=== PATIENT | female | born 1960 | race Caucasian/White ===

== ENCOUNTER 2016-10-28 12:41 | Emergency (ER) | payer MEDICAID ==
[2016-10-28 12:52] VITALS: BP 147/86
[2016-10-28] MEDS ORDERED: HYDROmorphone 1 MG/ML Syringe IVPUSH ONE (13:15)
[2016-10-28] MEDS ORDERED: Sodium Chloride 0.9% 10 ML Syringe FLUSH PRN (13:15)
--- NOTE | 2016-10-28 13:19 | EDM.PDOC ---
ED HPI GENERAL MEDICAL PROBLEM - General Chief Complaint: General Stated Complaint: POST SURGICAL ISSUES Time Seen by Provider: 10/28/16 13:16 Source of Information: Reports: Patient History Limitations: Reports: No Limitations - History of Present Illness INITIAL COMMENTS - FREE TEXT/NARRATIVE: 55 year old female presents for evaluation and treatment of a prolapsed rectum. Patient reports she had a colonscopy done on in [place] with Dr. Camacho. States she came home Saturday. Saturday she felt uncomfortable and sore. Reports Saturday she experienced significant pain. Her evaluated her and found a rectal mass. After researching the mass they determined she had a prolapsed rectum. She states her pushed the mass in. They contacted the on-call in [place] who instructed them to push it back in and they are unable to get it come to the ER. Patient reports this morning she awoke and noticed the rectum to be out again. She reports it is painful to sit and walk. Last BM was Saturday, she had a loose stool. No blood in her stool or rectal bleeding. She has never had anything like this before. She reports she colonscopy was preformed for rectal bleeding. Polyps were removed but she otherwise had no complications. Rectal Pain Score (Numeric/FACES): 9 - Related Data Allergies Allergy/AdvReac Type Severity Reaction Status Date / Time lisinopril Allergy Cough Verified 06/13/15 23:34 methadone Allergy Vomiting Verified 06/13/15 23:34 Home Meds: Home Meds Diazepam [Valium] 5 mg PO Q4H PRN 06/13/15 [History] oxyCODONE HCl/Acetaminophen [Percocet 5-325 mg Tablet] 1 tab PO Q4H PRN [History] Benzocaine [Americaine] 28 gm TP ASDIRECTED #1 tube 10/28/16 [Rx] Past Medical History Cardiovascular History: Reports: High Cholesterol, Hypertension Gastrointestinal History: Reports: Colon Polyp Other Gastrointestinal History: polyps removed x 5 Genitourinary History: Reports: Renal Calculus Musculoskeletal History: Reports: Back Pain, Chronic, Other (See Below) Other Musculoskeletal History: cervical disc removed 4-7. now with plates and screws Neurological History: Reports: TIA Endocrine/Metabolic History: Reports: Diabetes, Type II Oncologic (Cancer) History: Reports: Cervix - Past Surgical History GI Surgical History: Reports: Colonoscopy Female Surgical History: Reports: Hysterectomy, Other (See Below) Other Female Surgeries/Procedures: cervical cancer Social & Family History - Tobacco Use Smoking Status *Q: Never Smoker Years of Tobacco use: 40 Packs/Tins Daily: 0.5 - Caffeine Use Caffeine Use: Reports: Soda - Recreational Drug Use Recreational Drug Use: No ED ROS GENERAL - Review of Systems Review Of Systems: See Below GI/Abdominal: Reports: Other (rectal mass and rectal pain). Denies: Constipation, Diarrhea, Hematochezia, Melena ED EXAM, GENERAL - Physical Exam Exam: See Below Exam Limited By: No Limitations General Appearance: Alert, WD/WN, Mild Distress, Obese Respiratory/Chest: No Respiratory Distress, Lungs Clear, Normal Breath Sounds Cardiovascular: Normal Peripheral Pulses, Regular Rate, Rhythm, No Murmur Rectal (Female) Exam: Mass (linear appearing blue/purple mass suspicious for a prolapsed internal hemorrhoid), Tenderness Neurological: Alert, Oriented, Normal Cognition Psychiatric: Normal Affect, Normal Mood Skin Exam: Warm, Dry, Normal Color Course - Vital Signs Last Recorded V/S: Last Vital Signs Temp 36.4 C 10/28/16 12:51 Pulse 117 H 10/28/16 12:51 Resp 20 10/28/16 12:51 BP 147/86 H 10/28/16 12:51 Pulse Ox 92 L 10/28/16 12:51 - Orders/Labs/Meds Meds: Medications Discontinued Medications Generic Name Dose Route Start Last Admin Trade Name Freq PRN Reason Stop Dose Admin Hydromorphone HCl 1 mg 10/28/16 13:15 10/28/16 13:32 Dilaudid IVPUSH 10/28/16 13:16 1 mg ONETIME ONE Administration Sodium Chloride 10 ml 10/28/16 13:15 10/28/16 13:33 Saline Flush FLUSH 10 ml ASDIRECTED PRN Administration Keep Vein Open - Re-Assessments/Exams Free Text/Narrative Re-Assessment/Exam: 10/28/16 15:15 I initially gave the patient dilaudid for pain. Discussed the case with Dr. Fregoso who recommend applying sugar to the area to help with swelling and allow for better reduction. Mass was successfully reduced with pressure. The patient had discomfort with the procedure. I then had her get up walk around and sit. Upon re examining the area the mass had prolapsed again. On PE this is suspicious for a prolapsed internal hemorrhoid vs. prolapsed rectum. I reviewed the patient's records she has brought in from her recent colonscopy. Polyps removed. No mention of internal hemorrhoids. I contacted our surgeon veterans rehabilitation counselor, Dr. Jordy Izquierdo, recommend sit baths, staying off her feet, pain meds and bupivacaine topical for relief. Recommend she follow -up with Dr. Camacho as soon as she is able to. Patient has pain medication at home. She has not taken any for this problem as of yet. I will prescribe bupivacaine topical and discharge her home. Discharge instructions as documented. Departure - Departure Time of Disposition: 15:18 Disposition: Home, Self-Care 01 Condition: Good Clinical Impression: Prolapsed internal hemorrhoids - Discharge Information Prescriptions: Benzocaine [Americaine] 28 gm TP ASDIRECTED #1 tube Instructions: Hemorrhoids, [id number] Referrals: Kiya Chapman NP [Primary Care Provider] - Ozzy Camacho MD [Ordering Only Provider] - Forms: ED Department Discharge Additional Instructions: Take the medication you have at home for pain as needed. Apply the benzocaine up to 6 times a day to the area. Apply sparingly. Sitz bath. Recommend staying off your feet and resting. Call your surgeon's office first thing in the morning and let them know of your postsurgical complications. Please return to ER if your symptoms change or worsen.
== END 2016-10-28 15:30 | disposition home or self-care (01) ==
LOC: JD.ED 12:41
DX: K64.8 Other hemorrhoids (principal); I10 Essential (primary) hypertension; E78.00 Pure hypercholesterolemia, unspecified; E11.9 Type 2 diabetes mellitus without complications; Z86.73 Personal history of transient ischemic attack (TIA), and cerebral infarction without residual deficits; Z90.710 Acquired absence of both cervix and uterus; Z87.442 Personal history of urinary calculi; Z85.41 Personal history of malignant neoplasm of cervix uteri; Z98.890 Other specified postprocedural states; Z88.8 Allergy status to other drugs, medicaments and biological substances
CPT/HCPCS: 96374; 99283; J1170; J7050

== ENCOUNTER 2020-07-04 07:40 | Day surgery (SDC) | payer MEDICARE, BC ==
[~2020-07-04 07:40] MED LIST: Lactated Ringers 1,000 ML IV SCH; Lidocaine 1%/Sod Bicarbonate in NS 8.4% 1 ML Syringe IDERM PRN; Sodium Chloride 0.9% 10 ML Syringe FLUSH PRN
--- NOTE | 2020-07-04 07:57 | PCM.PREANE ---
Preanesthetic Assessment - Procedure Proposed Procedure: Surveillance Colonoscopy - Anesthesia/Transfusion/Family Hx Anesthesia History: Prior Anesthesia Without Reaction Family History of Anesthesia Reaction: No Transfusion History: No Prior Transfusion(s) Intubation History: Unknown - Review of Systems General: No Symptoms Pulmonary: No Symptoms (JACK-CPAP, Former smoker: qUIT 2015) Cardiovascular: No Symptoms (HTN, elevated cholesterol), Dyspnea on Exertion (going up steps) Gastrointestinal: No Symptoms (History of malignant neoplastic disease- cervix(hysterectomy)), Diarrhea Neurological: No Symptoms (History of CVA: 2003 chronic lower back pain), Headache (history of migraines) Other: Reports: Easy Bruising, Diabetes (Am GV=908 @ 0755), Thyroid Problems (History of hyper/hypo and Andrey's throiditis), Neck Pain (Cervical nerve root disorder, cervical spinie stenosis/HISTORY OF NECK SURGERY:06/15) - Physical Assessment NPO Status Date: 07/03/20 NPO Status Time: 20:30 Vital Signs: HR:94 Sat:92% Temp:96.7 B/P: 118/67 Resp:20 Height: 1.68 m Weight: 122 kg ASA Class: 3 Mental Status: Alert & Oriented x3 Airway Class: Mallampati = 2 Dentition: Reports: Normal Dentition, Missing Tooth/Teeth, Caries Thyro-Mental Finger Breadths: 3 Mouth Opening Finger Breadths: 3 ROM/Head Extension: Full Lungs: Clear to Auscultation, Normal Respiratory Effort Cardiovascular: Regular Rate, Regular Rhythm, No Murmurs - Lab Values: All labs reviewed and noted and within acceptable ranges to proceed with scheduled procedure. - Imaging/EKG Impressions: EKG: SR Rate=82 - Allergies Allergies/Adverse Reactions: Allergies Allergy/AdvReac Type Severity Reaction Status Date / Time lisinopril Allergy Cough Verified 07/01/20 10:18 methadone Allergy Vomiting Verified 07/01/20 10:18 - Anesthesia Plan Pre-Op Medication Ordered: Beta Loraine Beta Loraine: Metoprolol Med Last Dose Date: 07/04/20 Med Last Dose Time: 07:00 - Acknowledgements Anesthesia Type Planned: MAC Pt an Appropriate Candidate for the Planned Anesthesia: Yes Alternatives and Risks of Anesthesia Discussed w Pt/Guardian: Yes Pt/Guardian Understands and Agrees with Anesthesia Plan: Yes PreAnesthesia Questionnaire HEENT History: Reports: None Cardiovascular History: Reports: High Cholesterol, Hypertension Respiratory History: Reports: Sleep Apnea Gastrointestinal History: Reports: Colon Polyp, Hemorrhoids Other Gastrointestinal History: polyps removed x 5 Genitourinary History: Reports: Renal Calculus 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 now with plates and screws Neurological History: Reports: CVA, TIA, Other (See Below) Other Neuro History: cervical nerve root disorder, cervical spinal stenosis Psychiatric History: Reports: Depression Endocrine/Metabolic History: Reports: Diabetes, Type II, Hyperthyroidism, Hypothyroidism, Other (See Below) Other Endocrine/Metabolic History: hashimotos thyroiditis Hematologic History: Reports: None Immunologic History: Reports: None Oncologic (Cancer) History: Reports: Cervix Dermatologic History: Reports: None - Past Surgical History Head Surgeries/Procedures: Reports: None HEENT Surgical History: Reports: Tonsillectomy Cardiovascular Surgical History: Reports: None Respiratory Surgical History: Reports: None GI Surgical History: Reports: Appendectomy, Colonoscopy Female Surgical History: Reports: Hysterectomy, Other (See Below) Other Female Surgeries/Procedures: cervical cancer Endocrine Surgical History: Reports: None Neurological Surgical History: Reports: C-Spine Musculoskeletal Surgical History: Reports: None Dermatological Surgical History: Reports: None - SUBSTANCE USE Tobacco Use Status *Q: Former Tobacco User Recreational Drug Use History: No - HOME MEDS Home Medications: Home Meds Acetaminophen/oxyCODONE [Percocet 325-5 MG] 1 tab PO QID PRN 07/01/20 [History] Aspirin 81 mg PO DAILY 07/01/20 [History] Cholecalciferol (Vitamin D3) [Vitamin D3] 5,000 unit PO DAILY 07/01/20 [History] Diclofenac Sodium/Misoprostol [Arthrotec 75 mg-200 Mcg Tab] 1 tab PO TID 07/01/20 [History] Glucosamine/Methylsulfonylmeth [MSM-Glucosamine 250-250 MG] 1 cap PO DAILY 07/01/20 [History] Levothyroxine Sodium [Levothyroxine] 150 mcg PO DAILY 07/01/20 [History] Metoprolol Tartrate [Lopressor] 50 mg PO BID 07/01/20 [History] Multivitamin 1 tab PO DAILY 07/01/20 [History] Nortriptyline HCl [Pamelor] 50 mg PO DAILY 07/01/20 [History] Selenium 200 mcg PO DAILY 07/01/20 [History] amLODIPine Besylate [Norvasc] 10 mg PO DAILY 07/01/20 [History] diazePAM [Valium] 5 mg PO Q6H PRN 07/01/20 [History] metFORMIN [Glucophage] 2,000 mg PO DAILY 07/01/20 [History] - CURRENT (IN HOUSE) MEDS Current Meds: Current Medications Lactated Ringer's (Ringers, Lactated) 1,000 mls @ 125 mls/hr IV ASDIRECTED ROSSY Stop: 07/04/20 23:00 Lidocaine/Sodium Bicarbonate (Lidocaine 1%/Sod Bicarbonate In Ns 8.4% 1 Ml Syringe) 0.25 ml IDERM ONETIME PRN PRN Reason: Prior to IV Start Stop: 07/04/20 18:00 Sodium Chloride (Sodium Chloride 0.9% 10 Ml Syringe) 10 ml FLUSH ASDIRECTED PRN PRN Reason: Keep Vein Open Stop: 07/04/20 18:00
[2020-07-04] MEDS ORDERED: Albuterol 0.083% 2.5 MG/3 ML Neb Soln NEB ONE (08:21)
[2020-07-04] MEDS ORDERED: Midazolam 1 MG/ML 2 ML SDV ONE ×2 (08:23→09:30)
[2020-07-04] MEDS ORDERED: Propofol 200 MG/20 ML SDV ONE ×3 (08:23→09:51)
--- NOTE | 2020-07-04 10:12 | PCM48HPAN ---
Post Anesthesia Note - EVALUATION WITHIN 48HRS OF ANESTHETIC Vital Signs in Normal Range: Yes Patient Participated in Evaluation: Yes Respiratory Function Stable: Yes Airway Patent: Yes Cardiovascular Function Stable: Yes Hydration Status Stable: Yes Pain Control Satisfactory: Yes Nausea and Vomiting Control Satisfactory: Yes Mental Status Recovered: Yes Vital Signs: Last Vital Signs Temp 35.9 C L 07/04/20 07:50 Pulse 94 07/04/20 07:50 Resp 20 07/04/20 07:50 BP 118/67 07/04/20 07:50 Pulse Ox 93 L 07/04/20 08:45
--- NOTE | 2020-07-04 11:10 | PROC ---
DATE OF OPERATION: 07/04/2020 SURGEON: Sarah Joaquin MD PREOPERATIVE DIAGNOSES: 1. Hematochezia. 2. Need for surveillance colonoscopy. OPERATION PERFORMED: Colonoscopy with hemorrhoid banding. FINDINGS: 1. Diverticulosis. 2. Grade 3 hemorrhoids. ESTIMATED BLOOD LOSS: Minimal. ANESTHESIA: Monitored anesthesia care. COMPLICATIONS: None. INDICATIONS AND CONSENT: The patient 59-year-old female who presented to the office, has known history of hemorrhoids that have been flaring up frequently. The patient has tried many topical medications, but this continued to be a problem that bothers her. The hemorrhoids are associated with bleeding that is only after bowel movement and on toilet paper. The patient also needs a surveillance colonoscopy. We discussed that it is going to be best to do a colonoscopy and banding at the same time. We discussed risks, benefits, and alternatives and informed consent was obtained. DESCRIPTION OF PROCEDURE: The patient was taken to the procedure room, placed in left lateral decubitus position. Monitored anesthesia care was induced. A time-out was performed, and we began the procedure with perianal exam, which was significant for a small hemorrhoidal tissue at the left lateral position. The perianal exam otherwise was normal. Digital rectal exam was normal. We placed a colonoscope, taking down all the way to the cecum. Cecum was photographed. Ileocecal valve as well as appendiceal orifice were photographed. Then, we began to withdraw the colonoscope taking a good look at the entirety of the colonic mucosa. Prep was very good. There were no polyps that could be found through the entirety of the exam. There were scattered small and medium-sized diverticulosis from the transverse colon all the way to the sigmoid colon, most of them were in the sigmoid colon. Then, in the rectum on retroflexion, there were grade III hemorrhoids that were be visualized. They were not bleeding but were somewhat irritated. Once the exam was concluded, we suctioned out, and we decided to perform hemorrhoid banding due to her long-standing history of hemorrhoid problems. The speculum was placed once again, and the rectal mucosa was normal except for the hemorrhoids. A banding device was used to place 3 bands one at each hemorrhoid complex in the left lateral, right posterior, and right anterior. There was no bleeding after hemorrhoid banding. Once this was done, the procedure was concluded. The patient was awoken and taken to the PACU for recovery. The patient will need another screening colonoscopy in 5 years. Otherwise, instructions were given about the care post hemorrhoid banding, and the patient will follow up with primary care as regularly scheduled and follow up with me as needed. [id number] /[id number] MTDD
[2020-07-04 11:11] VITALS: BP 122/65; PULSE 72
== END 2020-07-04 10:55 | disposition home or self-care (01) ==
LOC: JD.SDS 07:40
PROVIDERS: ATTEND Surgery
DX: K57.30 Diverticulosis of large intestine without perforation or abscess without bleeding (principal); K64.2 Third degree hemorrhoids; G89.29 Other chronic pain; E11.9 Type 2 diabetes mellitus without complications; I10 Essential (primary) hypertension; E78.00 Pure hypercholesterolemia, unspecified; E66.9 Obesity, unspecified; Z98.890 Other specified postprocedural states; Z86.010 Personal history of colon polyps; Z79.899 Other long term (current) drug therapy; Z79.82 Long term (current) use of aspirin; Z79.84 Long term (current) use of oral hypoglycemic drugs; Z88.8 Allergy status to other drugs, medicaments and biological substances; Z87.891 Personal history of nicotine dependence; Z80.0 Family history of malignant neoplasm of digestive organs; Z68.41 Body mass index [BMI] 40.0-44.9, adult
CPT/HCPCS: 45378; 46221; 82962; 94640; J2250; J2704; J7120; 00902

== ENCOUNTER 2020-09-27 17:18 | Emergency (ER) | payer MEDICARE, BC ==
[2020-09-27 17:31] VITALS: BP 179/87; PULSE 92
--- NOTE | 2020-09-27 18:19 | EDM.PDOC ---
<Camille Acosta V - Last Filed: 09/28/20 13:08> ED HPI GENERAL MEDICAL PROBLEM - General Chief Complaint: Genitourinary Problem Stated Complaint: RT SIDE FLANK/BACK PAIN/LEGS/FEET SWELLING Time Seen by Provider: 09/27/20 18:00 - Related Data Allergies Allergy/AdvReac Type Severity Reaction Status Date / Time lisinopril Allergy Cough Verified 09/27/20 17:31 methadone Allergy Vomiting Verified 09/27/20 17:31 Home Meds: Home Meds Acetaminophen/oxyCODONE [Percocet 325-5 MG] 1 tab PO QID PRN 07/01/20 [History] Aspirin 81 mg PO DAILY 07/01/20 [History] Cholecalciferol (Vitamin D3) [Vitamin D3] 5,000 unit PO DAILY 07/01/20 [History] Diclofenac Sodium/Misoprostol [Arthrotec 75 mg-200 Mcg Tab] 1 tab PO TID 07/01/20 [History] Glucosamine/Methylsulfonylmeth [MSM-Glucosamine 250-250 MG] 1 cap PO DAILY 07/01/20 [History] Levothyroxine Sodium [Levothyroxine] 150 mcg PO DAILY 07/01/20 [History] Metoprolol Tartrate [Lopressor] 50 mg PO BID 07/01/20 [History] Multivitamin 1 tab PO DAILY 07/01/20 [History] Nortriptyline HCl [Pamelor] 50 mg PO DAILY 07/01/20 [History] Selenium 200 mcg PO DAILY 07/01/20 [History] amLODIPine Besylate [Norvasc] 10 mg PO DAILY 07/01/20 [History] diazePAM [Valium] 5 mg PO Q6H PRN 07/01/20 [History] metFORMIN [Glucophage] 2,000 mg PO DAILY 07/01/20 [History] calcium polycarbophiL [Fibercon] 625 mg PO Q12HR 15 Days #30 tablet 07/04/20 [Rx ] polyethylene glycoL 3350 [MiraLAX] 17 gm PO DAILY 14 Days #14 packet 07/04/20 [Rx] Cefdinir [Omnicef] 300 mg PO BID #16 cap 09/27/20 [Rx] Furosemide [Lasix] 40 mg PO DAILY #5 tablet 09/27/20 [Rx] Ondansetron [Zofran] 4 mg BUCCAL Q6H PRN #8 tab 09/27/20 [Rx] oxyCODONE HCl/Acetaminophen [Percocet 5-325 mg Tablet] 1 - 2 each PO Q4H PRN #20 tablet 09/27/20 [Rx] Course - Re-Assessments/Exams Free Text/Narrative Re-Assessment/Exam: 09/28/20 13:08 The patient did end up calling back today, regarding possible referral. I did call over to [facility] in [place], and I talked with the urology clinic, the earliest appointment that the patient can get is October 11 at 11 AM schedule time, I did book that appointment for her, and we did talk with the patient about this. Dr. Wood is going to be out of the country, and Dr. Schaffer is completely booked as well. Her appointment will be Dr. Bledsoe, who apparently is a [facility] doctor. We did however explained to the patient if she is having any increased pain, nausea/vomiting/diarrhea, or worsening symptoms that she is more than welcome to come back to the ER at any time for more urgent transfer. Patient verbalized understanding. Departure - Departure Disposition: Home, Self-Care Clinical Impression: Renal colic on right side, Dependent edema - Discharge Information Prescriptions: Furosemide [Lasix] 40 mg PO DAILY #5 tablet Cefdinir [Omnicef] 300 mg PO BID #16 cap oxyCODONE HCl/Acetaminophen [Percocet 5-325 mg Tablet] 1 - 2 each PO Q4H PRN #20 tablet PRN Reason: pain relief. Ondansetron [Zofran] 4 mg BUCCAL Q6H PRN #8 tab PRN Reason: nausea or vomiting Instructions: Renal Colic, [id number] Referrals: Kiya Chapman NP [Primary Care Provider] - Forms: ED Department Discharge Additional Instructions: Evaluation in the emergency room today in regards to right flank pain rating around the right abdomen. This is secondary to a very large 2 cm stone in the right renal pelvis on CT exam done today. The stone is bobbling up and down in the renal pelvis and causing intermittent obstruction of the ureter which is in turn causing your pain and associated nausea. The urinalysis today suggests that there is a low-grade infection in the urine and you will therefore require an antibiotic called Omnicef 300 mg twice daily for the next 8 days starting tonight. Second medication is pain medication Percocet 5/325 mg strength. Usually 1 to 2 tablets every 4-6 hours as needed for pain relief. You may well require a nausea medicine called Zofran 4 mg culture to be taken under your tongue and let it dissolve to relieve nausea or vomiting if it occurs either due to the pain response or sometimes the pain pills themselves will cause nausea on empty stomach. Fourth medication is Lasix 40 mg tablet once every morning for the next 5 days to help reduce the accumulation of fluid in your legs which is up to your knees likely from a combination of riding in a vehicle for period of time and being on prednisone for the last 10 days. The kidney stone needs to be broken up by a procedure called lithotripsy by a specialist or urologist. I will phone and make an arrangement for an appointment and get back to by phone susan with either phone number to call tomorrow to arrange an appointment or an appointment organized by the urologist susan. <Douglas Whitfield - Last Filed: 09/29/20 07:06> ED HPI GENERAL MEDICAL PROBLEM - General Source of Information: Reports: Patient History Limitations: Reports: No Limitations - History of Present Illness INITIAL COMMENTS - FREE TEXT/NARRATIVE: 59-year-old female presents to the ED in the accompaniment of her . She presents with right flank pain rating around her right lateral abdomen down towards the groin. She was told 2 weeks ago at the walk-in clinic at [facility] that she had a stone that was in her proximal right ureter and was too large to pass on her own. She was advised to follow-up with her primary care physician to arrange for urology consultation and management of this stone. Patient is a type II diabetic. She is also been recently placed on prednisone due to a rash on her upper extremities. She reports she was on Arthrotec for 40 years for arthritic pain but was recently taken off due to renal dysfunction. Therefore I am clueless as to how bad her kidney function is. More recently she has appreciated increased dependent edema both lower extremities for the last 3 days. They have been traveling from [place] and were sitting in a fishing boat over the weekend. However she has never had this much fluid retention in the past. She does have a history of hypertension. She does feel mildly short of breath but no true orthopnea or PND. Patient has multiple areas of hemorrhage on her forearms and dorsal hands compatible with being on prednisone for a lengthy period of time although this was the reason the Arthrotec was discontinued and she is no better on the steroids. She did not take prednisone today. She is not sure of the dosage either. She has not had any pain in her right flank or abdomen since diagnosis of the kidney stone 2 weeks ago until today. Associated nausea and pain which is about 2-3 out of 10 at present. She does not feel she needs anything for pain or nausea at this time. She reports that she has a chronically elevated white blood cell count that has been followed by hematology with no definitive reason for this. She has had a bone marrow biopsy which did not show any signs of leukemia. Patient has associated urinary frequency and urgency and has had 2 bowel movements today. This is happened since the pain started in her right flank she has not appreciated any blood in her urine. Onset: Other (Renal or right flank pain rating around to the right lower abdomen started again today. Dependent edema started 3 to 4 days ago.) Duration: Hour(s): (Right flank pain right abdominal pain x12 hours), Waxing/Waning Location: Reports: Abdomen, Back (Right flank pain), Other (Bilateral lower extremity edema.) Quality: Reports: Sharp, Stabbing, Other (Intermittent colicky pain to the right abdomen and) Severity: Moderate (constant pressure right flank.) Improves with: Reports: None ( Currently 3-4 out of 10.) Worsens with: Reports: None Context: Reports: Other (Spontaneous onset right flank pain). Denies: Activity, Exercise, Lifting, Sick Contact, Trauma Associated Symptoms: Reports: Malaise, Shortness of Breath, Other (Urinary urgency frequency without dysuria). 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 now with plates and screws Neurological History: Reports: CVA, TIA, Other (See Below) Other Neuro History: cervical nerve root disorder, cervical spinal stenosis Psychiatric History: Reports: Depression Endocrine/Metabolic History: Reports: Diabetes, Type II, Hyperthyroidism, Hypothyroidism, Other (See Below) Other Endocrine/Metabolic History: hashimotos thyroiditis Hematologic History: Reports: None Immunologic History: Reports: None Oncologic (Cancer) History: Reports: Cervix Dermatologic History: Reports: None - Past Surgical History HEENT Surgical History: Reports: Tonsillectomy GI Surgical History: Reports: Appendectomy, Colonoscopy, EGD Female Surgical History: Reports: Hysterectomy, Other (See Below) Other Female Surgeries/Procedures: cervical cancer Neurological Surgical History: Reports: C-Spine Social & Family History - Tobacco Use Tobacco Use Status *Q: Former Tobacco User Used Tobacco, but Quit: Yes Month/Year Tobacco Last Used: 04/2015 Second Hand Smoke Exposure: No - Caffeine Use Caffeine Use: Reports: None - Recreational Drug Use Recreational Drug Use: No - Living Situation & Occupation Living situation: Reports: Occupation: Unemployed ED ROS GENERAL - Review of Systems Review Of Systems: See Below Constitutional: Reports: Malaise, Weakness, Fatigue, Decreased Appetite. Denies: Fever, Chills HEENT: Reports: Glasses Respiratory: Reports: Shortness of Breath, Cough (Nonproductive). Denies: Wheezing, Pleuritic Chest Pain, Sputum, Hemoptysis, Other Cardiovascular: Reports: Blood Pressure Problem, Dyspnea on Exertion (Increased dependent edema worse than ever experienced before up to her knees bilaterally.), Edema. Denies: Chest Pain, Claudication, Lightheadedness, Orthopnea Endocrine: Reports: Fatigue ( Appreciates increased dyspnea on minimal exertion.) GI/Abdominal: Reports: Abdominal Pain (Right flank pain radiating to the right hemiabdomen towards the groin.), Decreased Appetite, Nausea. Denies: Constipation, Diarrhea, Difficulty Swallowing, Distension, Flatus, Hematemesis, Hematochezia, Melena, Mucous in Stool, Stool Incontinence (Social with right flank pain), Vomiting, Other : Reports: Frequency, Urgency. Denies: Discharge, Dysuria, Hematuria, Incontinence Musculoskeletal: Reports: Neck Pain (Chronic cervical neck pain having had previous surgery from cervical 4 to cervical 7.), Back Pain (Chronic lumbar back pain), Joint Pain (Chronic pain knees hips) Skin: Reports: Bruising (Chronic bruises upper extremities.) Neurological: Reports: No Symptoms Psychiatric: Reports: No Symptoms Hematologic/Lymphatic: Reports: No Symptoms Immunologic: Reports: No Symptoms ED EXAM, GI/ABD - Physical Exam Exam: See Below Exam Limited By: No Limitations General Appearance: Alert, WD/WN, No Apparent Distress, Other (Temperature is 36.4. Heart rate 92 in sinus respiratory to 16 with O2 sats of 97 to 98% room air. Does have mild systolic hypertension at 179/87. Has chronic hypertension.) Eyes: Bilateral: Normal Appearance (No scleral icterus or blepharal pallor appreciated.) Throat/Mouth: Normal Inspection, Normal Lips, Normal Oropharynx Head: Atraumatic, Normocephalic Neck: Normal Inspection, Limited Range of Motion (She has had previous cervical spine fusion from), Other (Well-healed midline scar over the cervical spine.). No: Lymphadenopathy (L) ( C4-C7. Has very limited extension flexion or lateral rotation.), Lymphadenopathy (R) Respiratory/Chest: No Respiratory Distress, Decreased Breath Sounds (Decreased air entry lower 25% lung power bilaterally without adventitial sounds.). No: Rales, Rhonchi, Wheezing Cardiovascular: Normal Peripheral Pulses, Regular Rate, Rhythm, No Gallop, No Murmur, No Rub. No: No Edema GI/Abdominal Exam: Normal Bowel Sounds, Soft, Non-Tender, No Organomegaly (Morbidly obese.), No Distention, No Mass, Pelvis Stable, Other Back Exam: CVA Tenderness (R) (Mild but pain was mostly inferior to the right kidney mid), Decreased Range of Motion, Paraspinal Tenderness (Adjacent to the lumbar spine bilaterally.). No: CVA Tenderness (L) ( lumbar spine.), Muscle Spasm Extremities: Pedal Edema (4+ pitting edema bilaterally up to her knees.). No: Joint Swelling Neurological: Alert, Oriented, CN II-XII Intact, Normal Cognition Psychiatric: Normal Affect, Normal Mood Skin Exam: Warm, Dry, Intact, Ecchymosis (Again multiple dark purple ecchymoses both upper extremities over her forearms dorsal hands bilaterally.) Course - Vital Signs Last Recorded V/S: Last Vital Signs Temp 36.4 C 09/27/20 17:28 Pulse 92 09/27/20 17:28 Resp 16 09/27/20 17:28 BP 179/87 H 09/27/20 17:28 Pulse Ox 97 09/27/20 17:28 - Orders/Labs/Meds Labs: Laboratory Tests 09/27/20 09/27/20 09/27/20 Range/Units 17:45 18:24 18:24 WBC 16.53 H (3.98-10.04) K/mm3 RBC 5.06 (3.98-5.22) M/mm3 Hgb 13.8 (11.2-15.7) gm/dl Hct 44.5 (34.1-44.9) % MCV 87.9 (79.4-94.8) fl MCH 27.3 (25.6-32.2) pg MCHC 31.0 L (32.2-35.5) g/dl RDW Std Deviation 49.2 H (36.4-46.3) fL Plt Count 331 (182-369) K/mm3 MPV 10.4 (9.4-12.3) fl Neutrophils % (Manual) 76 H (40-60) % Band Neutrophils % 2 (0-10) % Lymphocytes % (Manual) 17 L (20-40) % Atypical Lymphs % 0 % Monocytes % (Manual) 5 (2-10) % Eosinophils % (Manual) 0 L (0.7-5.8) % Basophils % (Manual) 0 L (0.1-1.2) Platelet Estimate Adequate Plt Morphology Comment RBC Morph Comment Normal Sodium 140 (136-145) mEq/L Potassium 3.4 L (3.5-5.1) mEq/L Chloride 103 (98-107) mEq/L Carbon Dioxide 25 (21-32) mEq/L Anion Gap 15.4 H (5-15) BUN 14 (7-18) mg/dL Creatinine 1.1 H (0.55-1.02) mg/dL Est Cr Clr Drug Dosing 50.91 mL/min Estimated GFR (MDRD) 51 (>60) mL/min BUN/Creatinine Ratio 12.7 L (14-18) Glucose 195 H (70-99) mg/dL Calcium 8.3 L (8.5-10.1) mg/dL Magnesium 1.6 L (1.8-2.4) mg/dL Total Bilirubin 0.3 (0.2-1.0) mg/dL AST 11 L (15-37) U/L ALT 32 (14-59) U/L Alkaline Phosphatase 100 (46-116) U/L C-Reactive Protein 0.6 (<1.0) mg/dL NT-Pro-B Natriuret Pep (0-125) pg/mL Total Protein 6.6 (6.4-8.2) g/dl Albumin 3.0 L (3.4-5.0) g/dl Globulin 3.6 gm/dL Albumin/Globulin Ratio 0.8 L (1-2) Urine Color Yellow (Yellow) Urine Appearance Clear (Clear) Urine pH 6.0 (5.0-8.0) Ur Specific [place] 1.020 (1.005-1.030) Urine Protein Negative (Negative) Urine Glucose (UA) Negative (Negative) Urine Ketones Negative (Negative) Urine Occult Blood Trace-lysed H (Negative) Urine Nitrite Negative (Negative) Urine Bilirubin Negative (Negative) Urine Urobilinogen 0.2 (0.2-1.0) Ur Leukocyte Esterase 1+ H (Negative) Urine RBC 5-10 H (0-5) /hpf Urine WBC 5-10 H (0-5) /hpf Ur Squamous Epith Cells 5-10 H (0-5) /hpf Urine Bacteria Few (FEW) /hpf Urine Mucus Few (FEW) /hpf 09/27/ Range/Units 18:24 WBC (3.98-10.04) K/mm3 RBC (3.98-5.22) M/mm3 Hgb (11.2-15.7) gm/dl Hct (34.1-44.9) % MCV (79.4-94.8) fl MCH (25.6-32.2) pg MCHC (32.2-35.5) g/dl RDW Std Deviation (36.4-46.3) fL Plt Count (182-369) K/mm3 MPV (9.4-12.3) fl Neutrophils % (Manual) (40-60) % Band Neutrophils % (0-10) % Lymphocytes % (Manual) (20-40) % Atypical Lymphs % % Monocytes % (Manual) (2-10) % Eosinophils % (Manual) (0.7-5.8) % Basophils % (Manual) (0.1-1.2) Platelet Estimate Plt Morphology Comment RBC Morph Comment Sodium (136-145) mEq/L Potassium (3.5-5.1) mEq/L Chloride (98-107) mEq/L Carbon Dioxide (21-32) mEq/L Anion Gap (5-15) BUN (7-18) mg/dL Creatinine (0.55-1.02) mg/dL Est Cr Clr Drug Dosing mL/min Estimated GFR (MDRD) (>60) mL/min BUN/Creatinine Ratio (14-18) Glucose (70-99) mg/dL Calcium (8.5-10.1) mg/dL Magnesium (1.8-2.4) mg/dL Total Bilirubin (0.2-1.0) mg/dL AST (15-37) U/L ALT (14-59) U/L Alkaline Phosphatase (46-116) U/L C-Reactive Protein (<1.0) mg/dL NT-Pro-B Natriuret Pep 172 H (0-125) pg/mL Total Protein (6.4-8.2) g/dl Albumin (3.4-5.0) g/dl Globulin gm/dL Albumin/Globulin Ratio (1-2) Urine Color (Yellow) Urine Appearance (Clear) Urine pH (5.0-8.0) Ur Specific [place] (1.005-1.030) Urine Protein (Negative) Urine Glucose (UA) (Negative) Urine Ketones (Negative) Urine Occult Blood (Negative) Urine Nitrite (Negative) Urine Bilirubin (Negative) Urine Urobilinogen (0.2-1.0) Ur Leukocyte Esterase (Negative) Urine RBC (0-5) /hpf Urine WBC (0-5) /hpf Ur Squamous Epith Cells (0-5) /hpf Urine Bacteria (FEW) /hpf Urine Mucus (FEW) /hpf - Radiology Interpretation Free Text/Narrative:: 59-year-old female presents to the ED with worsening right flank pain rating around to her right groin. She was seen in the walk-in clinic at [facility] 2 weeks ago and was told that she had a stone in her proximal right ureter that was too large to pass on its own and she was advised to seek her primary care physician to arrange for urology consultation. On firm questioning her believes that they were told it was 4 to 5 mm in size which would would not be too large to pass on its own. Patient has had no pain since initial diagnosis of the stone until today. Associated nausea increased urinary frequency with some degree of urgency without dysuria and has had 2 bowel movements today. Pain has a strong colicky component to it. She is not appreciated any hematuria. Second problem is increased dependent edema up to her knees which she has never experienced before over the last 3 to 4 days. She is on prednisone again dosages not written in the med list. She has been on prednisone for approximately 2 weeks but did not take it today. Recently she had her Arthrotec stopped and prednisone was used in place of this to the hopes of relieving the rash on her arms and helping her bone pain. Patient has chronic severe osteoarthritic changes in all of her joints. She has had previous cervical spine fusion from C4-C7. She has chronic lower back pain. At present her pain is rated as a 3 out of 10 and she prefers no pain medication at this time. Routine labs will be ordered as well as a urinalysis. CT of the abdomen will be completed per renal protocol without contrast. - Re-Assessments/Exams Free Text/Narrative Re-Assessment/Exam: 09/27/20 19:19 White count is elevated at 16.53 which she states is fairly normal for her. She is also on prednisone which would be causing a leukocytosis cytosis. The differential shows 76% neutrophils and 2% bands however. Hemoglobin is 13.8 with hematocrit of 44.5. Platelet count 331,000. Sodium is 140 with a potassium low normal at 3.4. Chloride 103 with a bicarb of 25. Anion gap is 15.4. BUN is 14 with a creatinine of 1.1. BUN/creatinine ratio is 12.7. Glucose is 195 note the patient is type II diabetic. Calcium 8.3 with a magnesium slightly low at 1.6. Bilirubin 0.3 with an AST of 11 and ALT of 32. Alk phosphatase was 100. C-reactive protein is 0.6. Total protein 6.6 with an albumin fraction of 3.0. Urinalysis shows a trace of lysed occult blood. The micro reveals 1+ leukocyte esterase 5-10 RBCs per high-power field and 5-10 white blood cells per high-power field also 5-10 squamous epithelial cells. Urine culture will be ordered 09/27/20 19:50 the scan of the abdomen pelvis performed per renal protocol reveals the liver to be mildly enlarged with evidence of steatosis.. There is no intraductal dilatation. Gallbladder is present with no calcified gallstones appreciated. Pancreas appears normal. Spleen appears somewhat smaller than normal. It is normal architecture. She does have a mild hiatal hernia. Left kidney is somewhat atrophic. It has 1 stone in the superior pole in the renal parenchyma. There is no obstructing stones. There is a small peripelvic cyst on the left kidney. On the right kidney there is evidence of obstruction with hydronephrosis due to a very large 2 cm stone that is obstructing the right renal pelvis and I suspect is bubbling up and down causing her intermittent pain. There is a significant amount of. Nephric stranding suggesting high- grade obstruction.: Show scattered stool in the colon with mild constipation particular noted in the right hemicolon and rectal vault.. Adrenal glands appear to be within normal limits. Pancreas appears normal. Mild amount of atherosclerosis in the aorta appreciated without aortic aneurysm. Atheroma most notable at the bifurcation and proximal internal iliac arteries. Urinary bladder is normal and fills appropriately with contrast. Ureters show no signs of obstruction. In the right kidney there are 4 other's stones approximately 3 to 4 mm in size in the renal parenchyma. The urinalysis shows 5-10 white blood cells per high-power field and 5-10 RBCs per high-power field with 5-10 epithelial cells per high-power field suggesting developing urinary tract infection. Patient will be treated with Percocet tabs 5/325 mg strength 1 or 2 every 4-6 hours as necessary for pain relief. Zofran 4 mg sublingual every 4 to 6 hours necessary for nausea or vomiting relief. She will be covered with antibiotic Omnicef 300 mg twice daily for the next 8 days due to high-grade obstruction with significant perinephric stranding suggesting high-grade obstruction. Prescription was also given for Lasix 40 mg once daily in the morning for 5 days due to significant dependent edema both lower extremities up to her knees. This is likely a combination of sitting with limited mobility fishing in a boat in [place] and driving back and forth to [place] in combination with use of prednisone 20 mg daily for the last 10 days. I will try and make a follow-up appointment for her or at least get a phone number for her to call tomorrow to arrange urology consultation as she is going to need lithotripsy to break up this large right renal stone. Departure - Departure Time of Disposition: 19:31 Condition: Fair - Discharge Information *PRESCRIPTION DRUG MONITORING PROGRAM REVIEWED*: Not Applicable *COPY OF PRESCRIPTION DRUG MONITORING REPORT IN PATIENT [facility]: Not Applicable Sepsis Event Note (ED) - Evaluation Sepsis Screening Result: No Definite Risk
--- NOTE | 2020-09-28 07:41 | CT ---
CT abdomen and pelvis Technique: Multiple axial sections were obtained from above the dome of the diaphragm inferiorly through the pubic symphysis. Intravenous and oral contrast was not utilized. Study has been performed as a ureteral stone protocol. Comparison: No prior abdominal imaging is available. Findings: Right-sided hydronephrosis is seen. This finding is caused by a large obstructing stone located within the right UVJ measuring approximately 2.1 cm. Second smaller obstructing calculus is noted directly distal to the larger one measuring 6 mm within the right UVJ. There are additional nonobstructing calculi being seen within the right kidney. Left kidney shows a small cyst measuring 2.3 cm. Several smaller lesions are seen compatible with additional small cysts. Minimal small nonobstructing stone is noted within the left kidney. Both ureters show no additional abnormal calcifications. Visualized lung bases show nothing acute. Fatty infiltration is noted within the liver. Spleen size is normal. Adrenal gland on the left side shows a small nodule which most likely represents a small adrenal adenoma measuring approximately 1.1 cm. Pancreas appears within normal limits. Abdominal aorta shows atherosclerotic calcification which continues into the iliac vessels with no aneurysm. No retroperitoneal adenopathy or mesenteric abnormalities are appreciated. Appendix is believed to be seen and is normal in size. No pelvic mass or adenopathy is seen. Bone window settings were reviewed. Diffuse disc space narrowing is noted throughout the spine including vacuum disc phenomena at L3-4 and L4-5. No acute osseous abnormality is appreciated. Impression: 1. Prominent right-sided hydronephrosis caused by two obstructing calculi located within the right UVJ. These obstructing calculi measure 2.1 cm and 6 mm. 2. Small cyst within the left kidney. Both kidneys show additional nonobstructing calculi. 3. Other findings as noted above which are felt to be nonacute. Diagnostic code #3 I agree with preliminary report from [facility] finalized on 09/27/20, 9:27 PM CDT, code 1
== END 2020-09-27 19:50 | disposition home or self-care (01) ==
LOC: JD.ED 17:18
DX: N23 Unspecified renal colic (principal); R60.0 Localized edema; E03.9 Hypothyroidism, unspecified; E11.9 Type 2 diabetes mellitus without complications; E78.00 Pure hypercholesterolemia, unspecified; I10 Essential (primary) hypertension; Z88.5 Allergy status to narcotic agent; Z88.8 Allergy status to other drugs, medicaments and biological substances; Z79.82 Long term (current) use of aspirin; Z87.891 Personal history of nicotine dependence
CPT/HCPCS: 36415; 74176; 74176-26; 80053; 81001; 83735; 83880; 85007; 85027; 86140; 87086; 99284; 99284-25

== ENCOUNTER 2021-04-01 10:25 | Emergency (ER) | payer MEDICARE, BC ==
[2021-04-01 10:38] VITALS: BP 155/81; PULSE 84
[2021-04-01] MEDS ORDERED: Ondansetron 4 MG/2 ML SDV IVPUSH ONE (10:51)
[2021-04-01] MEDS ORDERED: Sodium Chloride 0.9% 10 ML Syringe FLUSH PRN (10:51)
--- NOTE | 2021-04-01 10:56 | EDM.PDOC ---
ED HPI GENERAL MEDICAL PROBLEM - General Chief Complaint: Abdominal Pain Stated Complaint: LEFT SIDE PAIN/VOMITING Time Seen by Provider: 04/01/21 10:44 Source of Information: Reports: Patient History Limitations: Reports: No Limitations - History of Present Illness INITIAL COMMENTS - FREE TEXT/NARRATIVE: The patient presents with left sided flank pain and left abdominal pain. She woke up with the pain this morning. She has a history of kidney stones in November she had a procedure to help get rid of them. She has nausea and vomiting. She has no diarrhea, dysuria or hematuria. She has no chest pain, fever, chills, or cough. Onset: Sudden Duration: Hour(s): Location: Reports: Abdomen, Back Quality: Reports: Sharp Severity: Severe Improves with: Reports: None Worsens with: Reports: None Associated Symptoms: Reports: Nausea/Vomiting. Denies: Chest Pain, Cough, Fever/Chills, Headaches, Shortness of Breath Abdominal Pain Score (Numeric/FACES): 5 - Related Data Allergies Allergy/AdvReac Type Severity Reaction Status Date / Time cephalexin [From Keflex] Allergy Nausea and Verified 04/01/21 10:38 Vomiting lisinopril Allergy Cough Verified 04/01/21 10:38 methadone Allergy Vomiting Verified 04/01/21 10:38 Home Meds: Home Meds Acetaminophen/oxyCODONE [Percocet 325-5 MG] 1 tab PO QID PRN 07/01/20 [History] Aspirin 81 mg PO DAILY 07/01/20 [History] Cholecalciferol (Vitamin D3) [Vitamin D3] 5,000 unit PO DAILY 07/01/20 [History] Diclofenac Sodium/Misoprostol [Arthrotec 75 mg-200 Mcg Tab] 1 tab PO TID 07/01/20 [History] Glucosamine/Methylsulfonylmeth [MSM-Glucosamine 250-250 MG] 1 cap PO DAILY 07/01/20 [History] Levothyroxine Sodium [Levothyroxine] 150 mcg PO DAILY 07/01/20 [History] Metoprolol Tartrate [Lopressor] 50 mg PO BID 07/01/20 [History] Multivitamin 1 tab PO DAILY 07/01/20 [History] Nortriptyline HCl [Pamelor] 50 mg PO DAILY 07/01/20 [History] Selenium 200 mcg PO DAILY 07/01/20 [History] amLODIPine Besylate [Norvasc] 10 mg PO DAILY 07/01/20 [History] diazePAM [Valium] 5 mg PO Q6H PRN 07/01/20 [History] metFORMIN [Glucophage] 2,000 mg PO DAILY 07/01/20 [History] calcium polycarbophiL [Fibercon] 625 mg PO Q12HR 15 Days #30 tablet 07/04/20 [Rx] polyethylene glycoL 3350 [MiraLAX] 17 gm PO DAILY 14 Days #14 packet 07/04/20 [Rx] Cefdinir [Omnicef] 300 mg PO BID #16 cap 09/27/20 [Rx] Furosemide [Lasix] 40 mg PO DAILY #5 tablet 09/27/20 [Rx] Ondansetron [Zofran] 4 mg BUCCAL Q6H PRN #8 tab 09/27/20 [Rx] oxyCODONE HCl/Acetaminophen [Percocet 5-325 mg Tablet] 1 - 2 each PO Q4H PRN #20 tablet 09/27/20 [Rx] Hydrocodone/Acetaminophen [Hydrocodone-Acetamin 5-325 mg] 1 - 2 each PO Q6H PRN #15 tablet 04/01/21 [Rx] Ondansetron [Zofran ODT] 4 mg PO Q6H PRN #20 tab.dis 04/01/21 [Rx] Sulfamethoxazole/Trimethoprim [Bactrim Ds Tablet] 1 each PO BID #14 tablet 04/01/21 [Rx] Tamsulosin HCl [Flomax] 0.4 mg PO BID #14 capsule 04/01/21 [Rx] Past Medical History HEENT History: Reports: None Cardiovascular History: Reports: High Cholesterol, Hypertension Respiratory History: Reports: Sleep Apnea Gastrointestinal History: Reports: Chronic Constipation, Colon Polyp, Hemorrhoids Other Gastrointestinal History: polyps removed x 5 Genitourinary History: Reports: Renal Calculus OFFSHORE DIVER History: Reports: None, Musculoskeletal History: Reports: Back Pain, Chronic, Osteoarthritis, Other (See Below) Other Musculoskeletal History: cervical disc removed 4-7. now with plates and screws Neurological History: Reports: CVA, TIA, Other (See Below) Other Neuro History: cervical nerve root disorder, cervical spinal stenosis Psychiatric History: Reports: Depression Endocrine/Metabolic History: Reports: Diabetes, Type II, Hyperthyroidism, Hypothyroidism, Other (See Below) Other Endocrine/Metabolic History: hashimotos thyroiditis Hematologic History: Reports: None Immunologic History: Reports: None Oncologic (Cancer) History: Reports: Cervix Dermatologic History: Reports: None - Past Surgical History Head Surgeries/Procedures: Reports: None HEENT Surgical History: Reports: Tonsillectomy Cardiovascular Surgical History: Reports: None Respiratory Surgical History: Reports: None GI Surgical History: Reports: Appendectomy, Colonoscopy, EGD Female Surgical History: Reports: Hysterectomy, Other (See Below) Other Female Surgeries/Procedures: cervical cancer Endocrine Surgical History: Reports: None Neurological Surgical History: Reports: C-Spine Musculoskeletal Surgical History: Reports: None Dermatological Surgical History: Reports: None Social & Family History - Tobacco Use Tobacco Use Status *Q: Never Tobacco User Second Hand Smoke Exposure: No - Caffeine Use Caffeine Use: Reports: None - Recreational Drug Use Recreational Drug Use: No - Living Situation & Occupation Living situation: Reports: Occupation: Unemployed ED ROS GENERAL - Review of Systems Review Of Systems: See Below Constitutional: Reports: No Symptoms HEENT: Reports: No Symptoms Respiratory: Reports: No Symptoms Cardiovascular: Reports: No Symptoms Endocrine: Reports: No Symptoms GI/Abdominal: Reports: Abdominal Pain, Nausea, Vomiting. Denies: Diarrhea : Reports: Flank Pain Musculoskeletal: Reports: Back Pain ED EXAM, GI/ABD - Physical Exam Exam: See Below Exam Limited By: No Limitations General Appearance: Alert, No Apparent Distress Ears: Normal External Exam Nose: Normal Inspection Head: Atraumatic, Normocephalic Neck: Normal Inspection Respiratory/Chest: No Respiratory Distress, Lungs Clear, Normal Breath Sounds Cardiovascular: Regular Rate, Rhythm, No Edema, No Murmur GI/Abdominal Exam: Soft, Non-Tender, No Organomegaly, No Mass Back Exam: CVA Tenderness (L) Extremities: Normal Inspection Neurological: Alert, Oriented Course - Vital Signs Last Recorded V/S: Last Vital Signs Temp 97.1 F 04/01/21 10:37 Pulse 84 04/01/21 10:37 Resp 18 04/01/21 10:37 BP 155/81 H 04/01/21 10:37 Pulse Ox 100 04/01/21 10:37 - Orders/Labs/Meds Orders: Active Orders 24 hr Category Date Time Status Peripheral IV Care [RC] . DIRECTED Care 04/01/21 10:52 Active CULTURE URINE [MREF] Stat Lab 04/01/21 10:41 Received Sodium Chloride 0.9% [Normal Saline] 1,000 ml Med 04/01/21 11:00 Active IV ASDIRECTED Sodium Chloride 0.9% [Saline Flush] Med 04/01/21 10:51 Active 10 ml FLUSH ASDIRECTED PRN ED Antiemetic Medication Reflex [OM.PC] Stat Oth 04/01/21 10:52 Ordered Peripheral IV Insertion Adult [OM.PC] Stat Ot 04/01/21 10:51 Ordered Medication Orders Sodium Chloride (Normal Saline) 1,000 mls @ 125 mls/hr IV ASDIRECTED ROSSY Last Admin: 04/01/21 10:58 Dose: 125 mls/hr Documented by: GURU Sodium Chloride (Sodium Chloride 0.9% 10 Ml Syringe) 10 ml FLUSH ASDIRECTED PRN PRN Reason: Keep Vein Open Last Admin: 04/01/21 10:58 Dose: 10 ml Documented by: GURU Labs: Laboratory Tests 04/01/21 04/01/21 04/01/21 Range/Units 10:30 10:41 10:41 WBC (3.98-10.04) K/mm3 RBC (3.98-5.22) M/mm3 Hgb (11.2-15.7) gm/dl Hct (34.1-44.9) % MCV (79.4-94.8) fl MCH (25.6-32.2) pg MCHC (32.2-35.5) g/dl RDW Std Deviation (36.4-46.3) fL Plt Count (182-369) K/mm3 MPV (9.4-12.3) fl Neut % (Auto) (34.0-71.1) % Lymph % (Auto) (19.3-51.7) % [place] % (Auto) (4.7-12.5) % Eos % (Auto) (0.7-5.8) Baso % (Auto) (0.1-1.2) % Neut # (Auto) (1.56-6.13) K/mm3 Lymph # (Auto) (1.18-3.74) K/mm3 [place] # (Auto) (0.24-0.36) K/mm3 Eos # (Auto) (0.04-0.36) K/mm3 Baso # (Auto) (0.01-0.08) K/mm3 Sodium 143 (136-145) mEq/L Potassium 4.1 (3.5-5.1) mEq/L Chloride 106 (98-107) mEq/L Carbon Dioxide 26 (21-32) mEq/L Anion Gap 15.1 H (5-15) BUN 23 H (7-18) mg/dL Creatinine 0.9 (0.55-1.02) mg/dL Est Cr Clr Drug Dosing 61.45 mL/min Estimated GFR (MDRD) > 60 (>60) mL/min BUN/Creatinine Ratio 25.6 H (14-18) Glucose 164 H (70-99) mg/dL Calcium 8.8 (8.5-10.1) mg/dL Total Bilirubin 0.3 (0.2-1.0) mg/dL AST 13 L (15-37) U/L ALT 31 (14-59) U/L Alkaline Phosphatase 100 (46-116) U/L Total Protein 7.2 (6.4-8.2) g/dl Albumin 3.3 L (3.4-5.0) g/dl Globulin 3.9 gm/dL Albumin/Globulin Ratio 0.9 L (1-2) Lipase 544 H (73-393) U/L Urine Color Yellow (Yellow) Urine Appearance Slt cloudy H (Clear) Urine pH 6.0 (5.0-8.0) Ur Specific [place] 1.020 (1.005-1.030) Urine Protein 2+ H (Negative) Urine Glucose (UA) Negative (Negative) Urine Ketones Negative (Negative) Urine Occult Blood 3+ H (Negative) Urine Nitrite Negative (Negative) Urine Bilirubin Negative (Negative) Urine Urobilinogen 0.2 (0.2-1.0) Ur Leukocyte Esterase 2+ H (Negative) Urine RBC Too numerous to cnt H (0-5) /hpf Urine WBC >100 H (0-5) /hpf Ur Squamous Epith Cells 0-5 (0-5) /hpf Urine Bacteria Moderate H (FEW) /hpf Urine Mucus Not seen (FEW) /hpf Influenza Type A RNA Negative (NEGATIVE) Influenza Type B RNA Negative (NEGATIVE) SARS-CoV-2 RNA ([place]) Negative (NEGATIVE) 04/01/21 Range/Units 10:41 WBC 15.67 H (3.98-10.04) K/mm3 RBC 5.46 H (3.98-5.22) M/mm3 Hgb 13.8 (11.2-15.7) gm/dl Hct 46.8 H (34.1-44.9) % MCV 85.7 (79.4-94.8) fl MCH 25.3 L (25.6-32.2) pg MCHC 29.5 L (32.2-35.5) g/dl RDW Std Deviation 49.9 H (36.4-46.3) fL Plt Count 369 (182-369) K/mm3 MPV 10.0 (9.4-12.3) fl Neut % (Auto) 63.3 (34.0-71.1) % Lymph % (Auto) 28.3 (19.3-51.7) % [place] % (Auto) 6.1 (4.7-12.5) % Eos % (Auto) 1.7 (0.7-5.8) Baso % (Auto) 0.2 (0.1-1.2) % Neut # (Auto) 9.91 H (1.56-6.13) K/mm3 Lymph # (Auto) 4.43 H (1.18-3.74) K/mm3 [place] # (Auto) 0.96 H (0.24-0.36) K/mm3 Eos # (Auto) 0.27 (0.04-0.36) K/mm3 Baso # (Auto) 0.03 (0.01-0.08) K/mm3 Sodium (136-145) mEq/L Potassium (3.5-5.1) mEq/L Chloride (98-107) mEq/L Carbon Dioxide (21-32) mEq/L Anion Gap (5-15) BUN (7-18) mg/dL Creatinine (0.55-1.02) mg/dL Est Cr Clr Drug Dosing mL/min Estimated GFR (MDRD) (>60) mL/min BUN/Creatinine Ratio (14-18) Glucose (70-99) mg/dL Calcium (8.5-10.1) mg/dL Total Bilirubin (0.2-1.0) mg/dL AST (15-37) U/L ALT (14-59) U/L Alkaline Phosphatase (46-116) U/L Total Protein (6.4-8.2) g/dl Albumin (3.4-5.0) g/dl Globulin gm/dL Albumin/Globulin Ratio (1-2) Lipase (73-393) U/L Urine Color (Yellow) Urine Appearance (Clear) Urine pH (5.0-8.0) Ur Specific [place] (1.005-1.030) Urine Protein (Negative) Urine Glucose (UA) (Negative) Urine Ketones (Negative) Urine Occult Blood (Negative) Urine Nitrite (Negative) Urine Bilirubin (Negative) Urine Urobilinogen (0.2-1.0) Ur Leukocyte Esterase (Negative) Urine RBC (0-5) /hpf Urine WBC (0-5) /hpf Ur Squamous Epith Cells (0-5) /hpf Urine Bacteria (FEW) /hpf Urine Mucus (FEW) /hpf Influenza Type A RNA (NEGATIVE) Influenza Type B RNA (NEGATIVE) SARS-CoV-2 RNA ([place]A) (NEGATIVE) Meds: Medications Generic Name Dose Route Start Last Admin Trade Name Freq PRN Reason Stop Dose Admin Sodium Chloride 1,000 mls @ 125 mls/hr 04/01/21 11:00 04/01/21 10:58 Normal Saline IV 125 mls/hr ASDIRECTED ROSSY Administration Sodium Chloride 10 ml 04/01/21 10:51 04/01/21 10:58 Sodium Chloride 0.9% 10 Ml Syringe FLUSH 10 ml ASDIRECTED PRN Administration Keep Vein Open Discontinued Medications Generic Name Dose Route Start Last Admin Trade Name Freq PRN Reason Stop Dose Admin Ondansetron HCl 4 mg 04/01/21 10:51 04/01/21 10:58 Ondansetron 4 Mg/2 Ml Sdv IVPUSH 04/01/21 10:52 4 mg ONETIME ONE Administration - Re-Assessments/Exams Free Text/Narrative Re-Assessment/Exam: 04/01/21 10:55 I ordered an IV NS at 125mL/hr, zofran 4mg IV, dilaudid 1mg IV, labs, UA and a CT of the abdomen and pelvis without contrast. 04/01/21 12:43 Her WBC was elevated at 15.67. Her creatinine is normal at 0.9. Her glucose is elevated at 164. Her lipase is elevated at 544. Her UA shows RBCs, WBCs and leukocyte esterase. I feel she has a UTI. I have sent it for culture. Her CT shows a 4mm obstructing calculus within the distal left ureter occurring close to the UVJ. Two calculi are noted within the right renal pelvis which are not causing any obstruction at this time. Slight increased stool within the colon. Other findings believed to be incidental and chronic as noted. She feels better. I called [facility] in [place] and talked with the urologist conservation coordinator Dr Wise. He said with how far the stone is down the ureter. I can just get her on an antibiotic and flomax 2 times per day and they will see her in the clinic next week. Departure - Departure Time of Disposition: 12:50 Disposition: Home, Self-Care 01 Condition: Good Clinical Impression: Kidney stone on left side, Ureteral calculus, left, Ureteral colic - Discharge Information *PRESCRIPTION DRUG MONITORING PROGRAM REVIEWED*: Not Applicable *COPY OF PRESCRIPTION DRUG MONITORING REPORT IN PATIENT [place]: Not Applicable Prescriptions: Sulfamethoxazole/Trimethoprim [Bactrim Ds Tablet] 1 each PO BID #14 tablet Tamsulosin HCl [Flomax] 0.4 mg PO BID #14 capsule Hydrocodone/Acetaminophen [Hydrocodone-Acetamin 5-325 mg] 1 - 2 each PO Q6H PRN #15 tablet PRN Reason: Pain Ondansetron [Zofran ODT] 4 mg PO Q6H PRN #20 tab.dis PRN Reason: Nausea\vomiting Referrals: PCP,None [Primary Care Provider] - Britton Wise MD [Ordering Only Provider] - 1 Week Forms: ED Department Discharge Additional Instructions: Drink plenty of fluids. Take the flomax 2 times per day until you pass the stone. Take the bactrim 2 times per day for a week. Take the zofran every 6 hours as needed for nausea and vomiting. Take tylenol or motrin as needed for pain. If that does not help, try the hydrocodone. Call Dr Wise's office on Saturday. They will need to see you next week. Please return if you are worse. Sepsis Event Note (ED) - Focused Exam Vital Signs: Vital Signs Temp Pulse Resp BP Pulse Ox 04/01/21 10:37 97.1 F 84 18 155/81 H 100 - My Orders Last 24 Hours: My Active Orders 04/01/21 10:41 CULTURE URINE [MREF] Stat 04/01/21 10:51 Sodium Chloride 0.9% [Saline Flush] 10 ml FLUSH ASDIRECTED PRN Peripheral IV Insertion Adult [OM.PC] Stat 04/01/21 10:52 Peripheral IV Care [RC] . DIRECTED ED Antiemetic Medication Reflex [OM.PC] Stat 04/01/21 11:00 Sodium Chloride 0.9% [Normal Saline] 1,000 ml IV ASDIRECTED - Assessment/Plan Last 24 Hours: My Active Orders 04/01/21 10:41 CULTURE URINE [MREF] Stat 04/01/21 10:51 Sodium Chloride 0.9% [Saline Flush] 10 ml FLUSH ASDIRECTED PRN Peripheral IV Insertion Adult [OM.PC] Stat 04/01/21 10:52 Peripheral IV Care [RC] . DIRECTED ED Antiemetic Medication Reflex [OM.PC] Stat 04/01/21 11:00 Sodium Chloride 0.9% [Normal Saline] 1,000 ml IV ASDIRECTED
[2021-04-01] MEDS ORDERED: Sodium Chloride 0.9% 1,000 ML IV SCH (11:00)
[2021-04-01 11:22] LABS: CORONAVIRUS COVID-19 NAA NEGATIVE (NEGATIVE)
--- NOTE | 2021-04-01 11:56 | CT ---
CT abdomen and pelvis Technique: Multiple axial sections were obtained from above the dome of the diaphragm inferiorly to the pubic symphysis. Intravenous and oral contrast were not utilized. Study has been performed as a ureteral stone protocol. Comparison: Prior CT abdomen and pelvis exam of 09/27/20. Findings: Left ureter is mildly prominent. This finding is due to a distal obstructing ureteral calculus which measures 4 mm. This occurs close to the UVJ. Left kidney shows no additional calcifications. Right kidney shows calculus within the renal pelvis which is elongated and measures around 1.9 cm in size. Possible smaller adjacent calculus is seen more proximally measuring 6 mm. This does not cause any obstruction at this time. Visualized lung bases show a focal fatty thickening of the posterior left pleura as an incidental note. Liver shows no focal parenchymal abnormality. Spleen size is normal. Adrenal glands show no nodule. Pancreas shows no abnormality. Gallbladder contains no calcified gallstones. Abdominal aorta shows mild atherosclerotic calcification which continues into the iliac vessels. No aneurysm is seen. No retroperitoneal adenopathy is seen. No mesenteric abnormalities are seen. No pelvic mass or adenopathy is seen. Appendix is not visualized with certainty. No bowel dilatation is seen. Minimal increased stool is seen within the colon. Bone window settings were reviewed. Disc space narrowing is seen at L3-4 and L4-5 with vacuum phenomena. This remains stable from previous exam. Impression: 1. 4 mm obstructing calculus within the distal left ureter occurring close to the UVJ. 2. Two calculi are noted within the right renal pelvis which are not causing any obstruction at this time. 3. Slight increased stool within the colon. 4. Other findings believed to be incidental and chronic as noted above. Diagnostic code #3
== END 2021-04-01 13:11 | disposition home or self-care (01) ==
LOC: JD.ED 10:25
DX: N20.2 Calculus of kidney with calculus of ureter (principal); E78.00 Pure hypercholesterolemia, unspecified; I10 Essential (primary) hypertension; E11.9 Type 2 diabetes mellitus without complications; E03.9 Hypothyroidism, unspecified; Z88.1 Allergy status to other antibiotic agents; Z88.8 Allergy status to other drugs, medicaments and biological substances; Z79.82 Long term (current) use of aspirin; Z79.899 Other long term (current) drug therapy; Z86.73 Personal history of transient ischemic attack (TIA), and cerebral infarction without residual deficits; Z20.822 Contact with and (suspected) exposure to COVID-19
CPT/HCPCS: 0240U; 36415; 74176; 80053; 81001; 83690; 85025; 87086; 96374; 99284; J2405; J7030

== ENCOUNTER 2024-08-19 10:20 | Day surgery (SDC) | payer BC, MEDICARE ==
[~2024-08-19 10:20] MED LIST changes: -Lactated Ringers 1,000 ML IV SCH; -Lidocaine 1%/Sod Bicarbonate in NS 8.4% 1 ML Syringe IDERM PRN; +Sodium Chloride 0.9% 10 ML Syringe FLUSH SCH
[2024-08-19] MEDS ORDERED: propofoL 500 MG/50 ML 50 ML ONE (10:38)
[2024-08-19] MEDS: Lactated Ringers 1,000 ML IV SCH (10:45)
[2024-08-19] MEDS ORDERED: dexmedeTOMIDine HCl 200 MCG/2 ML SDV ONE (12:08)
[2024-08-19 14:09] VITALS: BP 135/74; PULSE 82
== END 2024-08-19 13:20 | disposition home or self-care (01) ==
LOC: JD.SDS 10:20
PROVIDERS: ATTEND Surgery
DX: D12.0 Benign neoplasm of cecum (principal); D12.3 Benign neoplasm of transverse colon; K64.8 Other hemorrhoids; Z80.0 Family history of malignant neoplasm of digestive organs; Z86.0100 Personal history of colon polyps, unspecified; I10 Essential (primary) hypertension; E11.9 Type 2 diabetes mellitus without complications; E78.2 Mixed hyperlipidemia; F33.1 Major depressive disorder, recurrent, moderate; E06.3 Autoimmune thyroiditis; Z87.891 Personal history of nicotine dependence; Z79.4 Long term (current) use of insulin; Z79.890 Hormone replacement therapy; Z79.899 Other long term (current) drug therapy
CPT/HCPCS: 43239; 45380; 45385; 46221; J2704; J7120; 00813

== ENCOUNTER 2025-01-25 08:35 | Emergency (ER) | payer MEDICARE ==
[2025-01-25] MEDS ORDERED: Naloxone 0.4 MG/ML SDV IVPUSH PRN (10:33)
[2025-01-25 11:41] VITALS: BP 159/87; PULSE 98
== END 2025-01-25 11:23 | disposition home or self-care (01) ==
LOC: JD.ED 08:35
DX: M54.16 Radiculopathy, lumbar region (principal); M54.42 Lumbago with sciatica, left side; G89.29 Other chronic pain; I10 Essential (primary) hypertension; E78.00 Pure hypercholesterolemia, unspecified; Z86.73 Personal history of transient ischemic attack (TIA), and cerebral infarction without residual deficits; E11.9 Type 2 diabetes mellitus without complications; E03.9 Hypothyroidism, unspecified; Z88.1 Allergy status to other antibiotic agents; Z88.8 Allergy status to other drugs, medicaments and biological substances; Z79.899 Other long term (current) drug therapy; Z79.4 Long term (current) use of insulin; Z79.890 Hormone replacement therapy
CPT/HCPCS: 96372; 99283; J1171; J7512; 99284